=== PATIENT | male | born 1945 | race Caucasian/White ===

== ENCOUNTER 2017-08-11 14:24 | Emergency (ER) | payer BC ==
[2017-08-11] MEDS: HYDROcodone/APAP 5/325MG 1 TAB TABLET PO (15:22)
== END 2017-08-11 15:30 | disposition home or self-care (01) ==
LOC: ER 15:30
DX: S52.122A Displaced fracture of head of left radius, initial encounter for closed fracture (principal); S22.32XA Fracture of one rib, left side, initial encounter for closed fracture; M25.522 Pain in left elbow; I10 Essential (primary) hypertension; E78.00 Pure hypercholesterolemia, unspecified; Z88.2 Allergy status to sulfonamides; W18.39XA Other fall on same level, initial encounter; Y93.01 Activity, walking, marching and hiking; Y99.8 Other external cause status; Y92.096 Garden or yard of other non-institutional residence as the place of occurrence of the external cause; R07.81 Pleurodynia
CPT/HCPCS: 71101; 73080; 73110; 99284